=== PATIENT | female | born 1970 | race African-American/Black ===

== ENCOUNTER 2019-07-13 19:59 | Emergency (ER) | payer MEDICAID ==
[~2019-07-13] VITALS: Ht 167.6 cm; Wt 117.9 kg
--- NOTE | 2019-07-13 20:13 | NUR ---
ED Nurse Note: pt walked in c/o right shoulder/arm pain x 1 wk, pt reports she one day woke up with pain but denies any recent injuries nor trauma, pt reports she has difficulty lifting her arm. cms intact, will cont monitor.
[2019-07-13 20:18] VITALS: BP 138/75
[2019-07-13] MEDS ORDERED: IBUPROFEN600 MG ORAL (21:05)
[2019-07-13 21:12] VITALS: BP 138/75
--- NOTE | 2019-07-13 21:12 | NUR ---
ED Nurse Note: PT CLEARED TO BE D/C PER ERMD, PT DISCHARGE AND AFTERCARE INSTRUCTION PROVIDED W/ PRESCRIPTION, PT EDUCATION DONE VIA DISCUSSION AND HANDOUT, PT ADVISED TO FOLLOW UP WITH PCP OR RETURN TO ED IF CHANGES IN CONDITION, VSS, AMBULATORY W/ STEADY GAIT LEFT W/ ALL BELONGINGS, ACCOMPANIED BY DAUGHTER.
--- NOTE | 2019-07-14 16:01 | Diagnostic Imaging Report ---
Indication: Right shoulder pain Technique: 3 views of the right shoulder Comparison: none Findings: No acute fractures. No dislocations. Joint spaces are preserved Impression: Negative
--- NOTE | 2019-07-14 19:17 | Emergency Room Report ---
History of Present Illness General Chief Complaint: Pain Source: Patient Present Illness HPI Patient is a 49-year-old female presented after increased right-sided shoulder pain. Patient reports having pain for several days. Pain is worse with movement. She denies any recent trauma. She reports having increased pain with abduction as well as external rotation. She had not been having any fever. She denies any prior history of shoulder injury. She states this began after she woke up from sleep with increased pain. She denies any respiratory difficulty or chest discomfort. She denies any swelling or numbness to her extremity. Allergies: Coded Allergies: No Known Allergies (Unverified , 07/13/19) Patient History Past Medical History: see triage record Last Menstrual Period: n/a Reviewed Nursing Documentation: PMH: Agreed; PSxH: Agreed Nursing Documentation-PMH Past Medical History: No Stated History Review of Systems All Other Systems: negative except mentioned in HPI Physical Exam Vital Signs Date Time Temp Pulse Resp B/P (MAP) Pulse Ox O2 Delivery O2 Flow Rate FiO2 07/13/19 20:04 98.4 80 18 159/89 (112) 98 Room Air General Appearance: well appearing, no apparent distress, alert, GCS 15 Head: normocephalic, atraumatic ENT: hearing grossly normal, normal voice Neck: full range of motion, supple Respiratory: lungs clear, no respiratory distress, speaking full sentences Cardiovascular #1: normal inspection Gastrointestinal: normal inspection Musculoskeletal: other - Decreased abduction, slightly decreased external rotation, tender to the lateral aspect of the right shoulder. 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 Differential diagnosis include was not limited to fracture, dislocation, bursitis, arthritis, septic joint, rotator cuff tendinitis among others. X-ray imaging of the right shoulder 3 views interpreted by me showed normal bony alignment without evident fracture. Patient was given ibuprofen for pain. She was advised to use a sling for several days. Patient's symptoms appear to be consistent with a monoarticular arthritis. There does not appear to be any evidence of vascular compromise pulses are equal. Patient does not show any evidence of septic joint. Patient was advised to recheck with her primary care physician and to return if any worsening of condition. Last Vital Signs Date Time Temp Pulse Resp B/P (MAP) Pulse Ox O2 Delivery O2 Flow Rate FiO2 07/13/19 21:13 98.4 07/13/19 21:12 78 18 138/75 98 Room Air Status: improved Disposition: HOME, SELF-CARE Condition: Stable Scripts Ibuprofen* (MOTRIN*) 600 Mg Tablet 600 MG ORAL Q8H PRN for For Pain, #30 TAB 0 Refills Prov: Chance Dennis MD 07/13/19 Patient Instructions: Shoulder Pain, [id number] Chance Dennis MD Jul 14, 2019 19:17
== END 2019-07-13 21:15 | disposition home or self-care (01) ==
LOC: EMR 20:16
DX: M25.511 Pain in right shoulder (principal)
CPT/HCPCS: 99283

== ENCOUNTER 2019-08-22 19:08 | Emergency (ER) | payer MEDICAID ==
[~2019-08-22] VITALS: Ht 170.2 cm; Wt 83.0 kg
[~2019-08-22 19:08] MED LIST: IBUPROFEN600 MG ORAL
[2019-08-22] MEDS ORDERED: NKM (19:24)
--- NOTE | 2019-08-22 19:30 | NUR ---
ED Nurse Note: Walk-in patient presents with complaints of abdominal pain and excessive menstrual bleeding. She has reports pain at her left hip and right shoulder that she manges with ibuprofen effectively. Patient reports history of anemia, appears calm, ambulatory with steady gait and has no s/s of acute distress.
[2019-08-22 19:32] VITALS: BP 146/91
[2019-08-22] MEDS ORDERED: HYDROcodone/Acetamin 7.5/325 tab ORAL ONE (20:30)
--- NOTE | 2019-08-22 20:37 | Emergency Room Report ---
History of Present Illness General Chief Complaint: Abdominal Pain Source: Patient Present Illness HPI Disclaimer: Please note that this report is being documented using DRAGON technology. This can lead to erroneous entry secondary to incorrect interpretation by the dictating instrument. HPI: 49-year-old female with history of anemia. Not on iron for approximately 1 month. Started her menses 3 days ago. Notes heavy bleeding with clotting. Complaining of left hip pain and right shoulder pain which are chronic. She is ambulatory and able to use the right upper extremity. She has been seen in the emergency department for these and her PMD. Reports some lightheadedness but denies any chest pain, palpitations, dizziness, near syncope, nausea, recent illness. Denies dysuria, hematuria, vomiting or diarrhea. PMH: Anemia PSH: Denies Allergies: Aspirin Social Hx: Denies drug, tobacco or alcohol use Allergies: Coded Allergies: ASPIRIN (Unverified Allergy, Mild, gi distress, 08/22/19) Patient History Last Menstrual Period: 08/22/19 Now: No Nursing Documentation-PMH Past Medical History: No History, Except For Review of Systems All Other Systems: negative except mentioned in HPI Physical Exam Vital Signs Date Time Temp Pulse Resp B/P (MAP) Pulse Ox O2 Delivery O2 Flow Rate FiO2 08/22/19 19:19 99.3 91 14 146/91 (109) 97 Room Air General: Awake and alert, no acute distress HEENT: NC/AT. EOMI. Cardiovascular: RRR. S1 and S2 normal. No murmur appreciated Resp: Normal work of breathing. No cough, wheezing or crackles appreciated Abdomen: Abdomen is soft, nondistended. Nontender, no rebound : Pulled blood in the vaginal vault. No active cervical bleeding identified. Cannot make out any masses or lacerations on the vaginal zahng. Skin: Intact. No abrasions, laceration or rash over the exposed skin MSK: Normal tone and bulk. Moving all extremities. No obvious deformity. Neuro: Awake and alert. Mentating appropriately. Back/Spine: No midline tenderness in the cervical, thoracic or lumbosacral spine. There is moderate left-sided paraspinal pain and over the left piriformis around the left gluteus and into the back of the quadriceps on the left side. Pelvis is stable. Medical Decision Making Diagnostic Impression: Primary Impression: Vaginal bleeding Additional Impressions: Shoulder pain Left hip pain ER Course Is a 49-year-old female presenting for evaluation of heavy vaginal bleeding over the past 3 days. Patient did recently start her menses may be a heavy. However also possible uterine bleeding. With her history of anemia, must check blood counts as she may require transfusion. She will be treated for her shoulder and hip pain in the emergency department though she is already been worked up for these by her PMD and can follow-up as an outpatient as there is been no acute injury or change in her condition. Laboratory Tests Test 08/22/19 20:30 White Blood Count 6.6 K/UL (4.8-10.8) Red Blood Count 4.44 M/UL (4.20-5.40) Hemoglobin 12.2 G/DL (12.0-16.0) Hematocrit 37.7 % (37.0-47.0) Mean Corpuscular Volume 85 FL (80-99) Mean Corpuscular Hemoglobin 27.6 PG (27.0-31.0) Mean Corpuscular Hemoglobin Concent 32.5 G/DL (32.0-36.0) Red Cell Distribution Width 12.8 % (11.6-14.8) Platelet Count 253 K/UL (150-450) Mean Platelet Volume 5.5 FL (6.5-10.1) L Neutrophils (%) (Auto) 68.6 % (45.0-75.0) Lymphocytes (%) (Auto) 17.8 % (20.0-45.0) L Monocytes (%) (Auto) 8.4 % (1.0-10.0) Eosinophils (%) (Auto) 1.4 % (0.0-3.0) Basophils (%) (Auto) 3.8 % (0.0-2.0) H Prothrombin Time 10.1 SEC (9.30-11.50) Prothrombin Time INR 0.9 (0.9-1.1) PTT 31 SEC (23-33) Sodium Level 140 MMOL/L (136-145) Potassium Level 4.0 MMOL/L (3.5-5.1) Chloride Level 106 MMOL/L (98-107) Carbon Dioxide Level 27 MMOL/L (21-32) Anion Gap 7 mmol/L (5-15) Blood Urea Nitrogen 11 mg/dL (7-18) Creatinine 1.0 MG/DL (0.55-1.30) Estimate Glomerular Filtration Rate > 60 mL/min (>60) Glucose Level 86 MG/DL (74-106) Calcium Level 9.0 MG/DL (8.5-10.1) Human Chorionic Gonadotropin, Qual Negative (NEGATIVE) Reevaluation Time: 21:30 Last Vital Signs Date Time Temp Pulse Resp B/P (MAP) Pulse Ox O2 Delivery O2 Flow Rate FiO2 08/22/19 19:32 91 14 Room Air 08/22/19 19:32 99.3 146/91 97 Status: unchanged Reevaluation Impression Labs have returned largely within normal limits. No significant anemia. No coagulopathy. Pelvic exam shows blood pooled in the vaginal vault however no active bleeding from the cervical office. This may be abnormal menses, mild myoma/fibroids as the patient had a history she now recalls of fibroids which were ablated in [place] over 10 years ago. She does not currently have an OB/ [employer] but states she can call her insurance company to schedule herself for reevaluation with [employer] and primary care. I have also included the name of some clinics in the area and instructed her to return to the emergency department she has any worsening bleeding. Vital signs are within normal limits. She is safe for outpatient follow-up. Patient and understand agree with this treatment plan were discharged home Disposition: HOME, SELF-CARE Condition: Stable Scripts Iron,Carbonyl/Vit C/Vit B12/Fa (IRON 100 PLUS TABLET) 1 Each Tablet 1 EACH PO DAILY for 30 Days, #30 TAB Prov: Jag Villasenor MD 08/22/19 Jag Villasenor MD Aug 22, 2019 20:37
[2019-08-22 20:44] LABS: BASOPHILS % (AUTO) 3.8 % (0.0-2.0); EOSINOPHILS % (AUTO) 1.4 % (0.0-3.0); HEMATOCRIT 37.7 % (37.0-47.0); HEMOGLOBIN 12.2 G/DL (12.0-16.0); LYMPHOCYTES % (AUTO) 17.8 % (20.0-45.0); MEAN CORPUSCULAR VOLUME 85 FL (80-99); MONOCYTES % (AUTO) 8.4 % (1.0-10.0); NEUTROPHILS % (AUTO) 68.6 % (45.0-75.0); PLATELET COUNT 253 K/UL (150-450); RED BLOOD COUNT 4.44 M/UL (4.20-5.40); RED CELL DISTRIBUTION WIDTH 12.8 % (11.6-14.8); WHITE BLOOD COUNT 6.6 K/UL (4.8-10.8)
[2019-08-22 20:54] LABS: ANION GAP 7 mmol/L (5-15); BLOOD UREA NITROGEN 11 mg/dL (7-18); CARBON DIOXIDE 27 MMOL/L (21-32); CHLORIDE 106 MMOL/L (98-107); SODIUM 140 MMOL/L (136-145)
--- NOTE | 2019-08-22 21:06 | NUR ---
ED Nurse Note: Patient requested at bedside. Request accomodated.
[2019-08-22 21:08] LABS: INR 0.9 (0.9-1.1)
--- NOTE | 2019-08-22 21:08 | NUR ---
ED Nurse Note: Pelvic tray placed at bedside in preparation for pelvic exam alongside ERMD.
--- NOTE | 2019-08-22 21:40 | NUR ---
ED Nurse Note: Chaperoned ERMd with pelvic exam. Patient tolerated well. Will continue to monitor.
[2019-08-22] MEDS ORDERED: IRON 100 PLUS1 EACH PO (21:49)
[2019-08-22 21:56] VITALS: BP 146/91
--- NOTE | 2019-08-22 21:56 | NUR ---
ED Nurse Note: Patient cleared for discharge, verbalized understanding of discharge instructions. Patient is A&Ox4, and has no s/s of acute distress. Patient ID band removed, Patient IV removed. Patient departed with all belongings accompanied by her .
== END 2019-08-22 21:56 | disposition home or self-care (01) ==
LOC: EMR 19:49
DX: M25.552 Pain in left hip (principal); M25.511 Pain in right shoulder; Z88.6 Allergy status to analgesic agent; N93.9 Abnormal uterine and vaginal bleeding, unspecified
CPT/HCPCS: 36415; 80048; 84703; 85025; 85610; 85730; 86850; 86900; 86901; Z7502; 99283

== ENCOUNTER 2020-04-30 10:44 | Emergency (ER) | payer MEDICAID ==
[~2020-04-30] VITALS: Ht 165.1 cm; Wt 74.8 kg
[~2020-04-30 10:44] MED LIST changes: +IRON 100 PLUS1 EACH PO; +NKM
[2020-04-30 11:08] VITALS: BP 121/83
--- NOTE | 2020-04-30 11:36 | Emergency Room Report ---
History of Present Illness General Chief Complaint: Pain Source: Patient Present Illness HPI 49-year-old female presents with right upper extremity pain. She states she struck her hand on a door about 3 months ago. Pain is been intermittent since but last night was worse. Complaining of elbow pain that is approximately 3 out of 10 worse with movement and palpation. She denies any trauma to the elbow. Patient denies any medical history. 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 Patient History Reviewed Nursing Documentation: PMH: Agreed; PSxH: Agreed Nursing Documentation-PMH Past Medical History: No Stated History Review of Systems All Other Systems: negative except mentioned in HPI Physical Exam Vital Signs Date Time Temp Pulse Resp B/P (MAP) Pulse Ox O2 Delivery O2 Flow Rate FiO2 04/30/20 10:53 98.2 105 16 121/83 (96) 99 Room Air Sp02 EP Interpretation: reviewed, normal General Appearance: well appearing, no apparent distress Head: normocephalic, atraumatic Eyes: bilateral eye PERRL, bilateral eye EOMI ENT: hearing grossly normal, moist mucus membranes Neck: full range of motion, supple Respiratory: lungs clear, normal breath sounds, no rhonchi, no respiratory distress, no retraction, no wheezing Cardiovascular #1: normal peripheral pulses, regular rate, rhythm, no murmur Gastrointestinal: non tender, soft, non-distended, no guarding Musculoskeletal: other - Right fifth metacarpal tender to palpation for me. 2 + pulses in right upper extremity. Right elbow tender at the cubital fossa. Neurologic: alert, oriented x3, no focal defects Skin: normal color, warm/dry Medical Decision Making Diagnostic Impression: Primary Impression: Hand contusion ER Course Differential diagnosis included but not limited to arthralgias, contusion, cubital tunnel syndrome, neuropathy to name a few. Patient had no signs of serious trauma on exam. Mildly tender. X-ray ordered of the hand and showed no acute fracture dislocation. I do suspect patient is having neuralgias possibly secondary to her recent trauma in addition to cubital tunnel syndrome. I do believe she would benefit from anti-inflammatories, rest ice of the extremity. Stable for discharge. Other X-Ray Diagnostic Results Other X-Ray Diagnostic Results : X-Ray ordered: Hand, right # of Views/Limited Vs Complete: 3 View Indication: Pain Interpretation: no dislocation, no fractures Last Vital Signs Date Time Temp Pulse Resp B/P (MAP) Pulse Ox O2 Delivery O2 Flow Rate FiO2 04/30/20 11:08 98.2 90 16 121/83 99 Room Air Status: improved Disposition: HOME, SELF-CARE Condition: Stable Scripts Ibuprofen* (MOTRIN*) 600 Mg Tablet 600 MG ORAL Q8H PRN for FOR PAIN, #30 TAB 0 Refills Prov: Vargas Rodriguez M.D. 04/30/20 Referrals: HOLLAND HARRIS,REFERRING (PCP) Vargas Rodriguez M.D. Apr 30, 2020 11:36
--- NOTE | 2020-04-30 12:25 | Diagnostic Imaging Report ---
Indication: Pain Technique: 3 views right hand Comparison: none Findings: There is mild ulnar minus variance and mild degenerative change of the distal radial ulnar joint. No acute fractures. No dislocations. Joint spaces are preserved. No osseous erosions. Impression: No acute process
[2020-04-30] MEDS ORDERED: IBUPROFEN600 M1 ORAL (12:54)
[2020-04-30 12:57] VITALS: BP 121/83
== END 2020-04-30 13:02 | disposition home or self-care (01) ==
LOC: EMR 10:56
DX: S60.221A Contusion of right hand, initial encounter (principal); W22.8XXA Striking against or struck by other objects, initial encounter; Y92.9 Unspecified place or not applicable; Z88.6 Allergy status to analgesic agent
CPT/HCPCS: 73130; Z7502; 99283